=== PATIENT | female | born 1975 | race Caucasian/White ===

== ENCOUNTER 2021-12-07 15:26 | Emergency (ER) | payer BC, OTHER ==
[2021-12-07] MEDS ORDERED: Sodium Chloride 0.9% 1000 ML 1,000 ML IV STA (15:57)
[2021-12-07] MEDS ORDERED: TORAdol 30 mg Injection IV ONE (15:57)
[2021-12-07] MEDS ORDERED: Norflex 60 MG/2 ML IV ONE (15:57)
[2021-12-07] MEDS ORDERED: TORAdol 30 mg Injection ONE (16:05)
[2021-12-07] MEDS ORDERED: Sodium Chloride 0.9% 1000 ML 1,000 ML ONE (16:05)
[2021-12-07] MEDS ORDERED: Norflex 60 MG/2 ML ONE (16:05)
[2021-12-07 16:32] LABS: Absolute Neutrophil Ct (ANC) 3.45 x10^3/uL (1.4-6.9); Basophil (Absolute #) 0.04 x10^3/uL (0-0.4); Eosinophil % 0.6 % (0.00-5.0); Eosinophil (Absolute #) 0.04 x10^3/uL (0-0.5); Hematocrit 38.6 % (35-47); Hemoglobin 12.8 g/dL (12.0-16.0); Lymphocyte (Absolute #) 2.26 x10^3/uL (1.0-4.6); Lymphocytes % 35.6 % (24.0-44.0); Mean Cell Volume 91.5 fL (78-100); Mean Corpuscular Hemoglobin 30.3 pg (26-32); Mean Corpuscular Hgb Concent. 33.2 g/dL (32-36); Mean Platelet Volume 9.3 fL (7.5-11.0); Monocyte (Absolute #) 0.54 x10^3/uL (0.0-1.3); Monocytes % 8.5 % (0.0-12.0); Neutrophil % 54.5 % (36.0-66.0); Platelet Count 227 x10^3/uL (150-450); Red Blood Count 4.22 x10^6/uL (4.1-5.4); Red Cell Distribution Width 13.8 % (11.5-14.0); White Blood Count 6.3 x10^3/uL (4.0-10.5)
[2021-12-07 16:44] LABS: ALBUMIN 4.7 g/dL (3.5-5.0); ALKALINE PHOSPHATASE 70 U/L (38-126); ANION GAP 13.9 MEQ/L (5-15); BLOOD UREA NITROGEN 18 mg/dL (7-17); CHLORIDE 102 mmol/L (98-107); Calcium 9.4 mg/dL (8.4-10.2); Carbon Dioxide 28 mmol/L (22-30); Creatinine 1 0.62 mg/dL (0.52-1.04); EST GLOMERULAR FILTRATION RATE > 60.0 ML/MIN; Epithelial Cells RARE /HPF (FEW); Glucose 92 mg/dL (74-106); LIPASE 55 U/L (23-300); Mucus SLIGHT /HPF (NEGATIVE); Potassium 3.6 mmol/L (3.5-5.1); SGOT/AST 27 U/L (14-36); SGPT/ALT 19 U/L (0-35); SODIUM 141 mmol/L (137-145); Total Protein 7.9 g/dL (6.3-8.2); WBC 0-2 /HPF (0-5)
[2021-12-07 16:45] LABS: Appearance CLEAR (CLEAR); Bilirubin NEGATIVE (NEGATIVE); Dipstick done @ ? MAIN LAB; Glucose NEGATIVE (NEGATIVE); Ketones NEGATIVE (NEGATIVE); Nitrite NEGATIVE (NEGATIVE); Protein,Urine Dip NEGATIVE (Negative); RBC NEGATIVE Ery/ul (0-5); Urobilinogen 0.2 mg/dL (0-1)
[2021-12-07 16:46] LABS: Bacteria NONE SEEN /HPF (NEGATIVE); Urine Cultured Indicated? NO
--- NOTE | 2021-12-07 18:22 | ERPHSYRPT ---
- History of Present Illness Time Seen by Provider: 12/07/21 15:36 Source: patient Exam Limitations: no limitations Patient Subjective Stated Complaint: pt here for mid back pain that radiates down right leg, no injury .states is on last day of antiboitcs for a UTI, Triage Nursing Assessment: pt alert, resp easy, arrived per wc, skin w/d/p.able to get from wc to bed, moves all ext well, no fever Physician History: 46 years old female currently on last day of antibiotic for UTI presented in ER with low back pain with radiation to right lower extremity and some flank pain as well. Patient reports moderate intensity sharp pain which is more with activity and better with resting. Denies any loss of bowel or bladder control. Patient denies any fall or trauma to the back. She is worried about having another kidney stone as she had a similar symptoms in the past with kidney stones as well. She was taking [id number]-[id number] medication for pain with no significant relief. She had MRI brain done yesterday at [facility] for dizziness and she had to lie flat for the whole test and she thinks it might have triggered her back pain which she usually have off and on. Timing/Duration: day(s) (2), gradual onset, worse Method of Injury: unknown Quality: sharp Back Pain Location: lumbar spine Back Pain Radiation: upper legs Severity of Pain-Max: moderate Severity of Pain-Current: moderate Modifying Factors: Improves With: immobilization. Worsens With: movement Associated Symptoms: lower back pain, muscle spasms, No urinary incontinence, No loss of bowel control, No problems urinating, No numbness in legs/feet, No weakness, No sensory/motor loss, No tingling in legs/feet Previous symptoms: same symptoms as today Allergies/Adverse Reactions: hydrocodone Allergy (Verified 12/07/21 15:36) Sulfa (Sulfonamide Antibiotics) Allergy (Verified 12/07/21 15:36) Immunizations Up to Date: Yes Travel Risk - International Travel Have you traveled outside of the country in past 3 weeks: No - Coronavirus Screening Are you exhibiting any of the following symptoms?: No Close contact with a COVID-19 positive Pt in past 14-21 Days: No - Vaccine Status Have you recieved a Covid-19 vaccination: Yes 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 - Vaccination Dates Date of 2cond Vaccination (if applicable): 2020 - Review of Systems Constitutional: No Symptoms Eyes: No Symptoms Ears, Nose, & Throat: No Symptoms Respiratory: No Symptoms Cardiac: No Symptoms Abdominal/Gastrointestinal: No Symptoms Genitourinary Symptoms: Flank Pain Musculoskeletal: Back Pain Skin: No Symptoms Neurological: No Headache Psychological: No Symptoms Endocrine: No Symptoms Hematologic/Lymphatic: No Symptoms Immunological/Allergic: No Symptoms - Past Medical History Pertinent Past Medical History: Yes Cardiac History: High Cholesterol Psycho-Social History: Anxiety, Depression Other Medical History: gastric sleeve 2020, kidney stone - Past Surgical History Past Surgical History: Yes Genitourinary: Kidney Surgery Female Surgical History: Hysterectomy, Lumpectomy Other Surgical History: tummu tuck, kidney stent - Social History Smoking Status: Never smoker Exposure to second hand smoke: No Drug Use: none Patient Lives Alone: No - Female History Hx Last Menstrual Period: hyster Hx Now: No - Nursing Vital Signs Nursing Vital Signs: Initial Vital Signs Temperature 97.2 F 12/07/21 15:50 Pulse Rate 73 12/07/21 15:50 Respiratory Rate 16 12/07/21 15:50 Blood Pressure 115/83 12/07/21 15:50 O2 Sat by Pulse Oximetry 96 12/07/21 15:50 Pain Scale Pain Intensity [Right Back] 8 Pain Intensity 7 - Physical Exam General Appearance: no apparent distress, alert Eye Exam: PERRL/EOMI Ears, Nose, Throat Exam: normal ENT inspection Neck Exam: normal inspection, non-tender, supple, full range of motion Respiratory Exam: normal breath sounds, lungs clear Cardiovascular Exam: regular rate/rhythm, normal heart sounds Gastrointestinal Exam: soft, normal bowel sounds, No tenderness Back Exam: normal inspection, normal range of motion, decreased range of motion, muscle spasm (Lumbar paraspinal area), point tenderness (Bilateral sacroiliac area), other (Straight leg raising test positive on the right at 60 degree), No CVA tenderness Extremity Exam: normal inspection, normal range of motion, other (2+ and symmetr ic reflexes in bilateral patellar and Achilles) Neurologic Exam: alert, 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 Skin Exam: normal color SpO2 Interpretation: normal SpO2: 100 O2 Delivery: Room Air Ordered Tests: Active Orders 24 hr Category Date Time Status IV Insertion STAT Care 12/07/21 15:57 Active NPO (ED) STAT Care 12/07/21 15:57 Active ABDOMEN AND PELVIS W/0 CONTRAS [CT] Stat Exams 12/07/21 16:58 Taken CBC W DIFF Stat Lab 12/07/21 16:28 Completed CMP Stat Lab 12/07/21 16:28 Completed LIPASE Stat Lab 12/07/21 16:28 Completed UA W/RFX CULTURE Stat Lab 12/07/21 16:28 Completed Medication Summary Discontinued Medications Generic Name Dose Route Start Last Admin Trade Name Erin PRN Reason Stop Dose Admin Sodium Chloride 1,000 mls @ 999 mls/hr 12/07/21 15:57 12/07/21 16:27 Sodium Chloride 0.9% 1000 Ml IV 12/07/21 16:57 999 mls/hr .Q1H1M STA Administration Sodium Chloride Confirm 12/07/21 16:05 Sodium Chloride 0.9% 1000 Ml Administered 12/07/21 16:06 Dose 1,000 mls @ ud .ROUTE .STK-MED ONE Ketorolac Tromethamine 30 mg 12/07/21 15:57 12/07/21 16:27 Ketorolac Tromethamine 30 Mg/Ml Inj IV 12/07/21 15:58 30 mg STAT ONE Administration Ketorolac Tromethamine Confirm 12/07/21 16:05 Ketorolac Tromethamine 30 Mg/Ml Inj Administered 12/07/21 16:06 Dose 30 mg .ROUTE .STK-MED ONE Orphenadrine Citrate 60 mg 12/07/21 15:57 12/07/21 16:27 Orphenadrine Citrate 60 Mg/2 Ml Vial IV 12/07/21 15:58 60 mg STAT ONE Administration Orphenadrine Citrate Confirm 12/07/21 16:05 Orphenadrine Citrate 60 Mg/2 Ml Vial Administered 12/07/21 16:06 Dose 60 mg .ROUTE .STK-MED ONE Lab/Rad Data: Laboratory Result Diagrams 12/07/21 16:28 12/07/21 16:28 Laboratory Results 12/07/21 12/07/21 12/07/21 Range/Units 16:28 16:28 16:28 WBC 6.3 (4.0-10.5) x10^3/uL RBC 4.22 (4.1-5.4) x10^6/uL Hgb 12.8 (12.0-16.0) g/dL Hct 38.6 (35-47) % MCV 91.5 (78-100) fL MCH 30.3 (26-32) pg MCHC 33.2 (32-36) g/dL RDW 13.8 (11.5-14.0) % Plt Count 227 (150-450) x10^3/uL MPV 9.3 (7.5-11.0) fL Gran % 54.5 (36.0-66.0) % Immature Gran % (Auto) 0.2 (0.00-0.4) % Nucleat RBC Rel Count 0.0 (0.00-0.1) % Eos # (Auto) 0.04 (0-0.5) x10^3/uL Immature Gran # (Auto) 0.01 (0.00-0.03) x10^3u/L Absolute Lymphs (auto) 2.26 (1.0-4.6) x10^3/uL Absolute Monos (auto) 0.54 (0.0-1.3) x10^3/uL Absolute Nucleated RBC 0.00 (0.00-0.01) x10^3u/L Lymphocytes % 35.6 (24.0-44.0) % Monocytes % 8.5 (0.0-12.0) % Eosinophils % 0.6 (0.00-5.0) % Basophils % 0.6 (0.0-0.4) % Absolute Granulocytes 3.45 (1.4-6.9) x10^3/uL Basophils # 0.04 (0-0.4) x10^3/uL Sodium 141 (137-145) mmol/L Potassium 3.6 (3.5-5.1) mmol/L Chloride 102 (98-107) mmol/L Carbon Dioxide 28 (22-30) mmol/L Anion Gap 13.9 (5-15) MEQ/L BUN 18 H (7-17) mg/dL Creatinine 0.62 (0.52-1.04) mg/dL Estimated GFR > 60.0 ML/MIN Glucose 92 (74-106) mg/dL Calcium 9.4 (8.4-10.2) mg/dL Total Bilirubin 0.50 (0.2-1.3) mg/dL AST 27 (14-36) U/L ALT 19 (0-35) U/L Alkaline Phosphatase 70 (38-126) U/L Serum Total Protein 7.9 (6.3-8.2) g/dL Albumin 4.7 (3.5-5.0) g/dL Lipase 55 (23-300) U/L Urinalys Dipstick Clnc MAIN LAB Urine Color YELLOW (YELLOW) Urine Appearance CLEAR (CLEAR) Urine pH 7.0 (5-6) Ur Specific [place] 1.020 (1.005-1.025) POC Urine Protein Conf NEGATIVE (Negative) Urine Ketones NEGATIVE (NEGATIVE) Urine Nitrite NEGATIVE (NEGATIVE) Urine Bilirubin NEGATIVE (NEGATIVE) Urine Urobilinogen 0.2 (0-1) mg/dL Urine Leukocytes NEGATIVE (NEGATIVE) Urine WBC (Auto) 0-2 (0-5) /HPF Urine RBC (Auto) NONE (0-2) /HPF U Epithel Cells (Auto) RARE (FEW) /HPF Urine Bacteria (Auto) NONE SEEN (NEGATIVE) /HPF Urine RBC NEGATIVE (0-5) Rohan/ul Urine Mucus (Auto) SLIGHT (NEGATIVE) /HPF Ur Culture Indicated? NO Urine Glucose NEGATIVE (NEGATIVE) mg/dL - Progress Progress: improved Progress Note: 12/07/21 18:20 46 years old is evaluated for back pain. She is given Toradol and Norflex for symptomatic relief on reevaluation feeling much better. She has a negative neuro exam in the lower extremities. Acute abdomen work-up negative. CT abdomen pelvis is negative for any acute abdominal pelvic findings. No obvious osseous abnormalities. I believe patient has low back strain, will start her on NSAIDs and muscle relaxants to go home. Outpatient follow-up recommended. Discussed signs symptoms of worsening needing return to ER which she seems understanding. Counseled pt/family regarding: lab results, diagnosis, need for follow-up, rad results - Departure Departure Disposition: Home Clinical Impression: Low back strain Condition: Stable Critical Care Time: No Referrals: GEN MUNOZ MD [Primary Care Provider] - Follow up/PCP as directed (In 2 days for reevaluation) Instructions: Sciatica (DC), Low Back Pain (DC) Additional Instructions: Avoid exertional activities. Take Tylenol/NSAIDs for pain as needed. Follow-up with primary care for reevaluation and may need MRI if symptoms does not improve or if having worsening of symptoms like excruciating pain, numbness tingling weakness of lower extremities, loss of bowel or bladder control. Also return to ER immediately for above symptoms. Prescriptions: Cyclobenzaprine HCl 10 mg [Flexeril 10 MG] 10 mg PO TID #20 tablet Diclofenac Sodium 50 mg PO TID PRN 7 Days #20 tab PRN Reason: Pain
[2021-12-07 18:35] VITALS: BP 111/58; PULSE 60
[2021-12-07 18:42] VITALS: O2SAT 100
--- NOTE | 2021-12-07 18:58 | XRAY ---
Indication: Right flank and back pain 2 weeks. History stones and pyelonephritis. Multiple contiguous axial images obtained through the abdomen and pelvis without contrast using renal stone protocol. Comparison: None Lung bases demonstrates small left lower lobe calcified granuloma. No infiltrate or effusion. Heart not enlarged. Small hiatal hernia. Kidneys demonstrates a few nonobstructing punctate calculi bilaterally. 1.6 cm right lower renal cortical cyst. Previous gastric bypass surgery. Noncontrasted stomach and bowel loops appear nonobstructed. Normal appendix. There is mild/moderate diffuse scattered colonic fecal debris throughout including rectum. Incidental 2.1 cm left adrenal adenoma, cholecystectomy, and hysterectomy. No free fluid/air. Remaining liver, pancreas, spleen, adrenal glands, kidneys, ureters, bladder and aorta are unremarkable for noncontrast exam. Osseous structures intact with minimal/mild degenerative changes throughout the thoracolumbar spine greatest at the lumbosacral junction. Impression: 1. Nonobstructing bilateral renal punctate calculi. 2. Incidental right renal cyst, diffuse fecal stasis, left adrenal adenoma, and chronic bony findings. Comment: Preliminary interpretation made by [facility]. No critical discrepancy.
== END 2021-12-07 18:35 | disposition home or self-care (01) ==
LOC: ED 15:26
DX: S39.012A Strain of muscle, fascia and tendon of lower back, initial encounter (principal)
CPT/HCPCS: 36000; 36415; 74176; 80053; 81015; 83690; 85025; 96360; 96361; 96374; 96375; 99284; J1885; J2360

== ENCOUNTER 2024-11-05 19:50 | Emergency (ER) | payer BC, OTHER ==
--- NOTE | 2024-11-05 20:00 | ERPHSYRPT ---
- History of Present Illness Time Seen by Provider: 11/05/24 19:55 Source: patient, EMS Exam Limitations: no limitations Physician History: 49-year-old female presents to the emergency room status post syncope patient reports she had a single episode while she reports that the past 2 weeks she has been being treated for COVID she reports she had a fever prior to going into work today she went and despite her fever she felt weak she felt like she posted up against a wall and then lowered herself before passing out she reports she folic she was asleep she denies any recent seizure activity denies any chest pain but does report shortness of breath with cough congestion denies any nausea vomiting diarrhea now in ED for further eval 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 (work) Prior Episodes: single episode today Timing/Duration: today Precipitating Factors: lightheadedness Loss of Consciousness: brief (seconds), dazed Charcter of event(s): became unresponsive Allergies/Adverse Reactions: hydrocodone Allergy (Verified 11/05/24 20:04) Sulfa (Sulfonamide Antibiotics) Allergy (Verified 11/05/24 20:04) Home Medications: ALPRAZolam [Alprazolam] 2 mg PO BIDPRN PRN 11/05/24 [History] Hydrochlorothiazide 25 mg [hydroDIURIL 25 MG] 12.5 mg PO DAILY 11/05/24 [History] Omeprazole 20 mg PO DAILY 11/05/24 [History] Potassium Chloride [Klor-Con 10] 10 meq PO DAILY 11/05/24 [History] Venlafaxine HCl ER 37.5 mg [Effexor ER 37.5 MG] 37.5 mg PO DAILY 11/05/24 [History] - Past Medical History Neurological History: Migraines Cardiac History: No Pertinent History Respiratory History: No Pertinent History Endocrine Medical History: Other Musculoskeletal History: Osteoarthritis Other Medical History: HX ANTERIOR CERVICAL DISCECTOMY 06/27/22 AND FUSION AT C3/4 - Past Surgical History Past Surgical History: Yes Genitourinary: Kidney Surgery Female Surgical History: Hysterectomy, Lumpectomy Other Surgical History: tummu tuck, kidney stent - Female History Hx Now: No - Social History Smoking Status: Never smoker Exposure to second hand smoke: No Drug Use: none Patient Lives Alone: No - Review of Systems Constitutional: No Fever, No Chills Eyes: No Symptoms Ears, Nose, & Throat: No Symptoms Respiratory: No Cough, No Dyspnea Cardiac: No Chest Pain, No Edema, No Syncope Abdominal/Gastrointestinal: No Abdominal Pain, No Nausea, No Vomiting, No Diarrhea Genitourinary Symptoms: No Dysuria Musculoskeletal: No Back Pain, No Neck Pain Skin: No Rash Neurological: Other (syncope), No Dizziness, No Focal Weakness, No Sensory Changes Psychological: No Symptoms Endocrine: No Symptoms All Other Systems: Reviewed and Negative Physical Exam - Nursing Vital Signs Nursing Vital Signs: Initial Vital Signs Temperature 97.0 F 11/05/24 19:51 Pulse Rate 62 11/05/24 19:51 Respiratory Rate 18 11/05/24 19:51 Blood Pressure 115/68 11/05/24 19:51 O2 Sat by Pulse Oximetry 100 11/05/24 19:51 Pain Scale Pain Intensity 4 - [place] Coma Scale Best Eye Response (Vicky): (4) open spontaneously Best Verbal Response ([place]): (5) oriented Best Motor Response ([place]): (6) obeys commands [place] Total: 15 - Physical Exam General Appearance: no apparent distress, alert Eye Exam: bilateral eye: PERRL, EOMI Ears, Nose, Throat Exam: normal ENT inspection, pharynx normal, moist mucous membranes Neck Exam: normal inspection, non-tender, supple, full range of motion Respiratory: normal breath sounds, lungs clear, No chest tenderness, No respiratory distress Cardiovascular: regular rate/rhythm, capillary refill <2 sec, No murmur, No pulse deficit Gastrointestinal: soft, No tenderness, No distention, No mass Back Exam: normal inspection, normal range of motion, No CVA tenderness, No vertebral tenderness Extremity Exam: normal inspection, normal range of motion, pelvis stable, No tenderness Mental Status: alert, 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, 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 Exam: normal speech, PERRL, No facial droop Coordination/Gait: normal finger to nose Motor/Sensory: no motor deficit, no sensory deficit, no pronator drift Skin Exam: normal color, warm, dry, No rash - Course Nursing assessment & vital signs reviewed: Yes EKG Interpreted by Me: RATE (64), Sinus Rhythm, Non-specific ST Changes, Other (no STEMI, short MI) Ordered Tests: Active Orders 24 hr Category Date Time Status Uranium Processing Supervisor STAT Care 11/05/24 19:56 Active EKG-ER Only STAT Care 11/05/24 19:55 Active IV Insertion STAT Care 11/05/24 19:55 Active Pulse Oximetry (ED) STAT Care 11/05/24 19:55 Active CHEST WITH CONTRAST [CT] Stat Exams 11/05/24 19:57 Completed HEAD WITHOUT CONTRAST [CT] Stat Exams 11/05/24 19:56 Completed CBC W DIFF Stat Lab 11/05/24 20:17 Completed CMP Stat Lab 11/05/24 20:17 Completed PROTIME WITH INR Stat Lab 11/05/24 20:17 Completed TROPONIN Q3H Lab 11/05/24 20:17 Completed TROPONIN Q3H Lab 11/06/24 01:00 Ordered UA W/RFX UR CULTURE Stat Lab 11/05/24 21:53 Completed [place] 3-7 Day Holter ONCE RT 11/05/24 23:19 Completed Holter Monitor Scan-RT ONCE RT 11/05/24 22:47 Completed Medication Summary Discontinued Medications Generic Name Dose Route Start Last Admin Trade Name Rodrigoq PRN Reason Stop Dose Admin Sodium Chloride 1,000 mls @ 999 mls/hr 11/05/24 19:55 11/05/24 21:12 Sodium Chloride 0.9% 1000 Ml IV 11/05/24 20:55 Infused .Q1H1M STA Infusion Sodium Chloride Confirm 11/05/24 19:59 Sodium Chloride 0.9% 1000 Ml Administered 11/05/24 20:00 Dose 1,000 mls @ ud .ROUTE .STK-MED ONE Lab/Rad Data: Laboratory Result Diagrams 11/05/24 20:17 11/05/24 20:17 Laboratory Results 11/05/24 11/05/24 11/05/24 Range/Units 21:53 20:17 20:17 WBC (3.98-10.04) x10^3/uL RBC (3.93-5.22) x10^6/uL Hgb (11.2-15.7) g/dL Hct (34.1-44.9) % MCV (79.4-94.8) fL MCH (25.6-32.2) pg MCHC (32.2-35.5) g/dL RDW (11.7-14.4) % Plt Count (182-369) x10^3/uL MPV (9.4-12.3) fL Gran % (34.0-71.1) % Immature Gran % (Auto) (0.001-0.429) % Nucleat RBC Rel Count (0.00-0.2) % Eos # (Auto) (0.04-0.36) x10^3/uL Immature Gran # (Auto) (0.001-0.031) x10^3u/L Absolute Lymphs (auto) (1.18-3.74) x10^3/uL Absolute Monos (auto) (0.24-0.86) x10^3/uL Absolute Nucleated RBC (0.00-0.012) x10^3u/L Lymphocytes % (19.3-51.7) % Monocytes % (4.7-12.5) % Eosinophils % (0.7-5.8) % Basophils % (0.1-1.2) % Absolute Granulocytes (1.56-6.13) x10^3/uL Basophils # (0.01-0.08) x10^3/uL PT (9.4-12.5) SECONDS INR (0.8-3.0) Sodium (135-145) mmol/L Potassium (3.5-5.1) mmol/L Chloride (98-107) mmol/L Carbon Dioxide (22-30) mmol/L Anion Gap (5-15) MEQ/L BUN (7-17) mg/dL Creatinine (0.52-1.04) mg/dL Estimated GFR ML/MIN Glucose (74-106) mg/dL Calcium (8.4-10.2) mg/dL Total Bilirubin (0.2-1.3) mg/dL AST (14-36) U/L ALT (0-35) U/L Alkaline Phosphatase (38-126) U/L Troponin I < 0.012 (0.000-0.033) ng/mL Serum Total Protein (6.3-8.2) g/dL Albumin (3.5-5.0) g/dL Urine Color Yellow (Yellow) Urine Appearance Clear (Clear) Urine pH 7.5 (4.6-8.0) Ur Specific [place] >=1.030 A (1.005-1.030) Urine Protein Negative (Negative) Urine Glucose (UA) Negative (Negative) mg/dL Urine Ketones Negative (Negative) Urine Blood Negative (Negative) Urine Nitrite Negative (Negative) Urine Bilirubin Negative (Negative) Urine Urobilinogen 0.2 (0.2) mg/dL Ur Leukocyte Esterase Trace A (Negative) U Hyaline Cast (Auto) NONE SEEN (0-2) /LPF Urine Microscopic RBC 0-2 (0-5) /HPF Urine Microscopic WBC 6-10 A (0-5) /HPF Ur Epithelial Cells None Seen (None Seen) /HPF Urine Bacteria None Seen (None Seen) /HPF Urine Culture Reflexed NO (NO) Influenza Type A Ag NEGATIVE (NEGATIVE) Influenza Type B Ag NEGATIVE (NEGATIVE) RSV (PCR) NEGATIVE (NEGATIVE) SARS-CoV-2 (PCR) NEGATIVE (NEGATIVE) 11/05/24 11/05/24 11/05/24 Range/Units 20:17 20:17 20:17 WBC 4.9 (3.98-10.04) x10^3/uL RBC 4.05 (3.93-5.22) x10^6/uL Hgb 12.5 (11.2-15.7) g/dL Hct 36.9 (34.1-44.9) % MCV 91.1 (79.4-94.8) fL MCH 30.9 (25.6-32.2) pg MCHC 33.9 (32.2-35.5) g/dL RDW 12.4 (11.7-14.4) % Plt Count 202 (182-369) x10^3/uL MPV 9.1 L (9.4-12.3) fL Gran % 47.9 (34.0-71.1) % Immature Gran % (Auto) 0.2 (0.001-0.429) % Nucleat RBC Rel Count 0.0 (0.00-0.2) % Eos # (Auto) 0.09 (0.04-0.36) x10^3/uL Immature Gran # (Auto) 0.01 (0.001-0.031) x10^3u/L Absolute Lymphs (auto) 2.00 (1.18-3.74) x10^3/uL Absolute Monos (auto) 0.44 (0.24-0.86) x10^3/uL Absolute Nucleated RBC 0.00 (0.00-0.012) x10^3u/L Lymphocytes % 40.6 (19.3-51.7) % Monocytes % 8.9 (4.7-12.5) % Eosinophils % 1.8 (0.7-5.8) % Basophils % 0.6 (0.1-1.2) % Absolute Granulocytes 2.36 (1.56-6.13) x10^3/uL Basophils # 0.03 (0.01-0.08) x10^3/uL PT 10.1 (9.4-12.5) SECONDS INR 0.92 (0.8-3.0) Sodium 142 (135-145) mmol/L Potassium 3.5 (3.5-5.1) mmol/L Chloride 107 (98-107) mmol/L Carbon Dioxide 26 (22-30) mmol/L Anion Gap 11.4 (5-15) MEQ/L BUN 12 (7-17) mg/dL Creatinine 0.66 (0.52-1.04) mg/dL Estimated GFR 108.8 ML/MIN Glucose 108 H (74-106) mg/dL Calcium 9.6 (8.4-10.2) mg/dL Total Bilirubin 0.20 (0.2-1.3) mg/dL AST 29 (14-36) U/L ALT 19 (0-35) U/L Alkaline Phosphatase 66 (38-126) U/L Troponin I (0.000-0.033) ng/mL Serum Total Protein 7.1 (6.3-8.2) g/dL Albumin 4.4 (3.5-5.0) g/dL Urine Color (Yellow) Urine Appearance (Clear) Urine pH (4.6-8.0) Ur Specific [place] (1.005-1.030) Urine Protein (Negative) Urine Glucose (UA) (Negative) mg/dL Urine Ketones (Negative) Urine Blood (Negative) Urine Nitrite (Negative) Urine Bilirubin (Negative) Urine Urobilinogen (0.2) mg/dL Ur Leukocyte Esterase (Negative) U Hyaline Cast (Auto) (0-2) /LPF Urine Microscopic RBC (0-5) /HPF Urine Microscopic WBC (0-5) /HPF Ur Epithelial Cells (None Seen) /HPF Urine Bacteria (None Seen) /HPF Urine Culture Reflexed (NO) Influenza Type A Ag (NEGATIVE) Influenza Type B Ag (NEGATIVE) RSV (PCR) (NEGATIVE) SARS-CoV-2 (PCR) (NEGATIVE) - Progress Progress: improved Progress Note: 11/05/24 21:49 FINDINGS: Pulmonary Arteries: Pulmonary arteries are normal in size and opacification. No evidence of pulmonary embolism. No stenosis or filling defects. Superior Vena Cava (SVC): Normal opacification and caliber. No evidence of thrombus or obstruction. Aorta: The thoracic aorta is normal in caliber. No evidence of aneurysm, dissection, or significant atherosclerotic changes. Aortic arch and descending thoracic aorta are unremarkable. Mediastinum: No mediastinal mass or lymphadenopathy. Heart: Normal size and morphology of the heart. No pericardial effusion. Lungs: No evidence of consolidation or masses. Two diffusely calcified nodules are noted at left lower lobe measuring 10 mm and 4 mm as well as small calcified left hilar and subcarinal lymph nodes; likely representing old healed granulomas- benign finding. No pleural effusion or thickening. Bones: No fractures or lytic/sclerotic lesions of the visualized bony structures. Normal alignment and bone density. Soft Tissues: Normal appearance of the visualized soft tissues. No abnormal masses or fluid collections. A small hiatal hernia is noticed. Signs of prior gastric sleeve as well as cholecystectomy are noted. IMPRESSION: 1. No evidence of pulmonary embolism. 2. No pneumonic consolidation or collapse. 11/05/24 22:04 FINDINGS: Brain Parenchyma: No evidence of acute infarct, hemorrhage, or mass effect. No abnormal areas of hypo- or hyperattenuation. Ventricular System: Ventricles are normal in size and configuration. No evidence of hydrocephalus or ventricular enlargement. Subarachnoid Spaces: Normal sulci and cisterns. No evidence of subarachnoid hemorrhage or extra-axial fluid collections. Cerebellum and Brainstem: No masses, lesions, or areas of abnormal density. Orbits: Normal appearance of the globes, optic nerves, and extraocular muscles. No evidence of orbital masses or abnormal density. Sinuses: Clear paranasal sinuses. No evidence of sinusitis or mucosal thickening. Mastoid Air Cells: Clear mastoid air cells. No evidence of mastoiditis. Skull: Normal skull morphology. IMPRESSION: No acute abnormality detected in CT of the head without contrast. 11/05/24 23:40 Patient was informed of her CT results she is feeling improved requesting to be discharged however we have 1 more troponin still pending patient was fitted with a Holter monitor for the next 3 days patient's COVID swabs are negative here in the ED pending second troponin - Departure Departure Disposition: Home Clinical Impression: Syncope Qualifiers: Syncope type: unspecified Qualified Code(s): R55 - Syncope and collapse Condition: Stable Critical Care Time: No Referrals: LISSY BROWN [NON-STAFF PHY W/O PRIVILEGES, UNKNOWN] - Follow up/PCP as directed Instructions: Syncope (Fainting) (DC), Ambulatory heart monitoring
[2024-11-05 20:04] VITALS: TEMP 97
[2024-11-05 20:20] LABS: BASOPHIL % 0.6 % (0.1-1.2); Basophil (Absolute #) 0.03 x10^3/uL (0.01-0.08); Eosinophil (Absolute #) 0.09 x10^3/uL (0.04-0.36); Hematocrit 36.9 % (34.1-44.9); Hemoglobin 12.5 g/dL (11.2-15.7); IMMATURE GRAN # 0.01 x10^3u/L (0.001-0.031); IMMATURE GRAN % 0.2 % (0.001-0.429); Lymphocyte (Absolute #) 2.00 x10^3/uL (1.18-3.74); Mean Corpuscular Hemoglobin 30.9 pg (25.6-32.2); Mean Corpuscular Hgb Concent. 33.9 g/dL (32.2-35.5); Monocyte (Absolute #) 0.44 x10^3/uL (0.24-0.86); NUCLEATED RBC # 0.00 x10^3u/L (0.00-0.012); NUCLEATED RBC % 0.0 % (0.00-0.2); Platelet Count 202 x10^3/uL (182-369); Red Blood Count 4.05 x10^6/uL (3.93-5.22); White Blood Count 4.9 x10^3/uL (3.98-10.04)
[2024-11-05 20:32] LABS: Calcium 9.6 mg/dL (8.4-10.2); Carbon Dioxide 26.0 mmol/L (22-30); Creatinine 1 0.66 mg/dL (0.52-1.04); EST GLOMERULAR FILTRATION RATE 108.8 ML/MIN; Glucose 108.0 mg/dL (74-106); Potassium 3.5 mmol/L (3.5-5.1); SGOT/AST 29.0 U/L (14-36); SGPT/ALT 19.0 U/L (0-35); Total Protein 7.1 g/dL (6.3-8.2)
[2024-11-05 20:40] LABS: INR 0.92 (0.8-3.0); PROTIME 10.1 SECONDS (9.4-12.5)
[2024-11-05 20:56] LABS: INFLUENZA A NEGATIVE (NEGATIVE); INFLUENZA B NEGATIVE (NEGATIVE); RESPIRATORY SYNCTIAL VIRUS NEGATIVE (NEGATIVE); SARS-CoV-2 Xpert Express NEGATIVE (NEGATIVE)
--- NOTE | 2024-11-05 21:44 | XRAY ---
CLINICAL HISTORY: pe recent syncope COVID COMPARISON: None. TECHNIQUE: Contiguous axial CT angiographic images of the chest were acquired with the administration of 80cc isvoue 370 intravenous contrast. Coronal and sagittal reconstructions were obtained. One of these 3D techniques was utilized: Maximum Intensity Pixel (MIP), 3D Reconstructed Images, Volume Rendered Images, Surface Shaded Rendering. One of the following dose reduction techniques were utilized for this exam: Automated exposure control, adjustment of the mA and/or kV according to patient size, and use of iterative reconstruction. CTDI: DLP: FINDINGS: Pulmonary Arteries: Pulmonary arteries are normal in size and opacification. No evidence of pulmonary embolism. No stenosis or filling defects. Superior Vena Cava (SVC): Normal opacification and caliber. No evidence of thrombus or obstruction. Aorta: The thoracic aorta is normal in caliber. No evidence of aneurysm, dissection, or significant atherosclerotic changes. Aortic arch and descending thoracic aorta are unremarkable. Mediastinum: No mediastinal mass or lymphadenopathy. Heart: Normal size and morphology of the heart. No pericardial effusion. Lungs: No evidence of consolidation or masses. Two diffusely calcified nodules are noted at left lower lobe measuring 10 mm and 4 mm as well as small calcified left hilar and subcarinal lymph nodes; likely representing old healed granulomas- benign finding. No pleural effusion or thickening. Bones: No fractures or lytic/sclerotic lesions of the visualized bony structures. Normal alignment and bone density. Soft Tissues: Normal appearance of the visualized soft tissues. No abnormal masses or fluid collections. A small hiatal hernia is noticed. Signs of prior gastric sleeve as well as cholecystectomy are noted. IMPRESSION: 1. No evidence of pulmonary embolism. 2. No pneumonic consolidation or collapse. Electronically Signed by: Ilan Villagran MD. (11/05/2024 21:43:11 EDT)
--- NOTE | 2024-11-05 21:50 | XRAY ---
CLINICAL HISTORY: syncope COMPARISON: None. TECHNIQUE: Axial non-contrast CT scan of the brain was performed from the skull base to the high parietal region. One of the following dose reduction techniques were utilized for this exam: Automated exposure control, adjustment of the mA and/or kV according to patient size, use of iterative reconstruction. FINDINGS: Brain Parenchyma: No evidence of acute infarct, hemorrhage, or mass effect. No abnormal areas of hypo- or hyperattenuation. Ventricular System: Ventricles are normal in size and configuration. No evidence of hydrocephalus or ventricular enlargement. Subarachnoid Spaces: Normal sulci and cisterns. No evidence of subarachnoid hemorrhage or extra-axial fluid collections. Cerebellum and Brainstem: No masses, lesions, or areas of abnormal density. Orbits: Normal appearance of the globes, optic nerves, and extraocular muscles. No evidence of orbital masses or abnormal density. Sinuses: Clear paranasal sinuses. No evidence of sinusitis or mucosal thickening. Mastoid Air Cells: Clear mastoid air cells. No evidence of mastoiditis. Skull: Normal skull morphology. IMPRESSION: No acute abnormality detected in CT of the head without contrast. Electronically Signed by: Ilan Villagran MD. (11/05/2024 21:48:46 EDT)
[2024-11-05 22:19] LABS: Glucose, Urine Negative (Negative); Protein,Urine Dip Negative (Negative); RBC 0-2 /HPF (0-5)
[2024-11-06 02:05] VITALS: BP 120/92; PULSE 66; RESP 17; O2SAT 99
== END 2024-11-06 02:01 | disposition home or self-care (01) ==
LOC: ED 19:50
DX: R55 Syncope and collapse (principal); R50.9 Fever, unspecified; R53.1 Weakness; R06.02 Shortness of breath; Z79.899 Other long term (current) drug therapy